=== PATIENT | female | born 1945 | race Asian ===

== ENCOUNTER 2016-09-30 04:54 | Inpatient (IN) | payer OTHER ==
[~2016-09-30] VITALS: Ht 152.4 cm; Wt 41.0 kg
[2016-09-30] MEDS ORDERED: MORPHINE PO (10:46)
[2016-09-30 12:57] VITALS: BP 97/67
[2016-09-30 21:04] VITALS: BP 98/69
[2016-10-01 06:02] VITALS: BP 97/68
[2016-10-01 08:45] VITALS: BP 107/75
[2016-10-01 17:27] VITALS: BP 91/67
[2016-10-01 21:45] VITALS: BP 92/64
[2016-10-02 06:20] VITALS: BP 75/52
[2016-10-02 10:00] VITALS: BP 85/50
[2016-10-02 14:07] VITALS: BP 80/49
[2016-10-02 18:00] VITALS: BP 83/53
[2016-10-02 21:48] VITALS: BP 88/53
[2016-10-02 23:20] VITALS: BP 82/54
[2016-10-03 06:30] VITALS: BP 78/51
[2016-10-03 10:14] VITALS: BP 82/54
[2016-10-03 14:47] VITALS: BP 82/53
[2016-10-03 17:58] VITALS: BP 84/50
[2016-10-03 23:07] VITALS: BP 75/52
[2016-10-04 07:03] VITALS: BP 70/44
[2016-10-04 07:14] VITALS: Ht 152.4 cm; Wt 41.0 kg
[2016-10-04 13:20] VITALS: BP 70/41
[2016-10-04 15:13] VITALS: BP 145/51
[2016-10-04 16:07] VITALS: BP 64/40
[2016-10-05 10:00] VITALS: BP 55/34
== END 2016-10-05 17:35 | disposition expired | DRG 56 ==
LOC: ED 04:54 → DU 10:54 → MU 10:54 → DU 17:08
PROVIDERS: ADMIT Family Medicine
DX: G20 Parkinson's disease (principal); J96.00 Acute respiratory failure, unspecified whether with hypoxia or hypercapnia; G71.0 Muscular dystrophy; Z66 Do not resuscitate; R13.10 Dysphagia, unspecified; R00.0 Tachycardia, unspecified; Z79.899 Other long term (current) drug therapy; I46.9 Cardiac arrest, cause unspecified
CPT/HCPCS: J2060; J2270; J7050